=== PATIENT | male | born 1995 | race American Indian/Alaskan Native ===

== ENCOUNTER 2018-02-03 18:33 | Emergency (ER) | payer OTHER ==
[2018-02-03] MEDS ORDERED: MOTRIN PO ONE (20:55)
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
--- NOTE | 2018-02-03 21:44 | XRay Report ---
FINAL REPORT EXAM: XR HIP 2-3V RT HISTORY: hip pain on the right TECHNIQUE: AP view of the pelvis and a single coned-down view of the right hip. PRIORS: None. FINDINGS: No evidence for acute fracture or dislocation is seen. Joint spaces are maintained. The soft tissues are unremarkable. Bony mineralization is normal. IMPRESSION: No acute soft tissue or bony abnormality noted in the right hip.
[2018-02-03 22:23] VITALS: BP 123/81
== END 2018-02-03 22:23 | disposition home or self-care (01) ==
LOC: ED 18:33
DX: S76.011A Strain of muscle, fascia and tendon of right hip, initial encounter (principal); V89.2XXA Person injured in unspecified motor-vehicle accident, traffic, initial encounter; Y93.89 Activity, other specified; Y92.89 Other specified places as the place of occurrence of the external cause; Y99.8 Other external cause status
CPT/HCPCS: 99283